=== PATIENT | female | born 1980 | race Caucasian/White ===

== ENCOUNTER 2017-11-24 07:10 | Day surgery (SDC) | payer OTHER ==
[~2017-11-24] VITALS: Ht 162.6 cm; Wt 83.9 kg
[~2017-11-24 07:10] MED LIST: ADVIL,NUPRIN,M200 MG PO; ENDOCET 5-3251 EACH PO; EXCEDRIN MIGRA1 EAC3 PO; FIORICET 50-301 EACH PO; IBUPROFEN800 MG PO; PRILOSEC20 MG PO; TOPAMAX50 MG PO; TRINESSA LO TA1 EACH PO; WELLBUTRIN XL150 MG PO
[2017-11-24 07:38] VITALS: BP 125/71
[2017-11-24 11:02] VITALS: BP 128/85
[2017-11-24 12:23] VITALS: BP 115/69
== END 2017-11-24 12:40 | disposition home or self-care (01) ==
LOC: SDC 07:10
PROC: 0U5 Female Reproductive System, Destruction (ICD-10-PCS; principal; 2017-11-24)
DX: Z30.2 Encounter for sterilization (principal); Z82.49 Family history of ischemic heart disease and other diseases of the circulatory system; Z82.3 Family history of stroke; Z83.3 Family history of diabetes mellitus; Z81.8 Family history of other mental and behavioral disorders
CPT/HCPCS: 93005; J0131; J0330; J1100; J1170; J1885; J2250; J2405; J3010; S0020